=== PATIENT | female | born 1995 | race Caucasian/White ===

== ENCOUNTER 2017-02-19 18:42 | Emergency (ER) | payer MEDICAID, OTHER ==
[~2017-02-19] VITALS: Ht 157.5 cm; Wt 75.0 kg
[~2017-02-19 18:42] MED LIST: LEVO1IUD4; PREN1TAB20 PO
[2017-02-19 18:44] VITALS: BP 135/84; PULSE 90; RESP 20; TEMP 98.4; O2SAT 98
--- NOTE | 2017-02-19 19:28 | PD ---
Physical Exam Time Seen by Provider: 19:27 Narrative 21yo F c/o R ear pain today. HX of ear infection a couple weeks ago and never took the antibiotics. + fever yesterday 101.3. +N w/o vomiting. Patient seen in triage. VS reviewed. Awaiting bed placement. Data Data Last Documented VS Vital Signs Date Time Temp Pulse Resp B/P Pulse Ox O2 Delivery O2 Flow Rate FiO2 02/19/17 18:44 98.4 90 20 135/84 98 Room Air MDM Supervised Visit with ANGELIKA: Noreen Whitney Feb 19, 2017 19:28
[2017-02-19] MEDS ORDERED: AMOX875T PO (21:14)
[2017-02-19] MEDS ORDERED: IBUP800T23 PO (21:14)
[2017-02-19] MEDS ORDERED: AMOXICILLIN 875 MG TAB PO ONE (21:15)
--- NOTE | 2017-02-19 21:15 | PD ---
HPI Chief Complaint: ENT Complaint Time Seen by Provider: 21:08 Travel History International Travel<30 days: No Contact w/Intl Traveler<30days: No Traveled to known affect area: No History of Present Illness HPI Patient's a 21-year-old female presenting to emergency room for evaluation of right and left ear pain. Patient states it has been ongoing for 2-3 weeks, the pain has gotten worse and her hearing is muffled in the right ear. She reports a fever of 101.3 yesterday, she has not taken any Tylenol or ibuprofen today. She also reports an irritated throat and nasal congestion. These symptoms started over the last 2-3 days. She reports her pain is a 5 out of 10, she has not been swimming. She has no primary care provider denies any significant past medical history. [facility] Past Medical History Medical History: Denies Significant Hx Diminished Hearing: No Tetanus Vaccination: < 5 Years Influenza Vaccination: No ?: Not LMP: IRREGULAR Past Surgical History Surgical History: No Previous Surgery Social History Alcohol Use: No Tobacco Use: No Substance Use: No Allergies-Medications (Allergen,Severity, Reaction): Coded Allergies: No Known Allergies (Unverified , 02/19/17) Reported Meds & Prescriptions Reported Meds & Active Scripts Active Reported Kyleena (Levonorgestrel (Iud)) 19.5 Mg Iud Review of Systems Except as stated in HPI: all other systems reviewed are Neg General / Constitutional: Positive: Fever HENT: Positive: Sore Throat, Earache Physical Exam Narrative GENERAL: Well-nourished, well-developed patient. SKIN: Focused skin assessment warm/dry. HEAD: Normocephalic. ENT: Mucosa pink and moist. Mild erythema, no exudates. 1+ tonsillar hypertrophy bilaterally. No uvular edema. No uvular, palatal, or tonsillar deviation. Airway patent. Nasal turbinates appear normal without nasal blood, purulent drainage or septal hematoma. EARS: Bilateral pinnae and external canals appear within normal limits. Bilateral tympanic membranes are erythematous , No perforation noted EYES: No scleral icterus. No injection or drainage. NECK: Supple, trachea midline. No JVD or lymphadenopathy. CARDIOVASCULAR: Regular rate and rhythm without murmurs, gallops, or rubs. RESPIRATORY: Breath sounds equal bilaterally. No accessory muscle use. GASTROINTESTINAL: Abdomen soft, non-tender, nondistended. MUSCULOSKELETAL: No cyanosis, or edema. BACK: Nontender without obvious deformity. No CVA tenderness. Data Data Last Documented VS Vital Signs Date Time Temp Pulse Resp B/P Pulse Ox O2 Delivery O2 Flow Rate FiO2 02/19/17 19:30 16 02/19/17 18:44 98.4 90 135/84 98 Room Air Orders Amoxicillin (Trimox) (02/19/17 21:15) MDM Medical Decision Making Medical Screen Exam Complete: Yes Emergency Medical Condition: Yes Interpretation(s) Vital Signs Date Time Temp Pulse Resp B/P Pulse Ox O2 Delivery O2 Flow Rate FiO2 02/19/17 19:30 16 02/19/17 18:44 98.4 90 20 135/84 98 Room Air Differential Diagnosis Otitis media versus otitis externa versus URI versus pharyngitis versus other Narrative Course Patient is a 21-year-old female presenting to emergency department evaluation of ear pain, nasal congestion, sore throat. Patient's vital signs are stable, she is afebrile and has not taken any antipyretics today. Physical examination revealed bilateral otitis media area patient be treated with amoxicillin, this will also cover pharyngitis. She is encouraged to complete full course of antibiotics as prescribed, take ibuprofen as needed and as directed for fevers or pain. She was encouraged to return to emergency department immediately for any new or worsening symptoms. She is advised to follow-up with her primary doctor or at the [facility]. Patient verbalized understanding of instructions. She will be given first dose of amoxicillin in the emergency department. Patient is stable for discharge. Diagnosis Primary Impression: Otitis media Qualified Code: H66.93 - Bilateral otitis media, unspecified chronicity, unspecified otitis media type Additional Impression: Pharyngitis Qualified Code: J02.9 - Pharyngitis, unspecified etiology Referrals: [facility] Primary Care Physician Patient Instructions: General Instructions, Otitis Media (ED) Additional Instructions: Follow-up with a primary doctor or at the [facility] Complete full course of antibiotics as prescribed even if you begin to feel better Return to the emergency department immediately for any new or worsening symptoms Take ibuprofen as needed and as directed for fever or pain Maintain adequate fluid intake Med/Other Pt SpecificInfo: Prescription(s) given Scripts Ibuprofen 800 Mg [id number] Mg PO Q6HR PRN (PAIN) #40 TAB Ref 0 Prov:Teresa Borges 02/19/17 Amoxicillin 875 Mg [id number] Mg PO BID 10 Days Ref 0 Prov:Teresa Borges 02/19/17 Disposition: 01 DISCHARGE HOME Condition: Stable Teresa Borges Feb 19, 2017 21:15
== END 2017-02-19 22:06 | disposition home or self-care (01) ==
LOC: NEPD 18:42
DX: H66.93 Otitis media, unspecified, bilateral (principal); J02.9 Acute pharyngitis, unspecified; R09.81 Nasal congestion; R50.9 Fever, unspecified
CPT/HCPCS: 99283

== ENCOUNTER 2018-02-17 09:35 | Emergency (ER) | payer BC, MEDICAID, OTHER ==
[~2018-02-17] VITALS: Ht 157.5 cm; Wt 76.0 kg
[~2018-02-17 09:35] MED LIST changes: +AMOX875T PO; +IBUP1TAB7 PO; -PREN1TAB20 PO
[2018-02-17 09:41] VITALS: BP 121/85; PULSE 109; RESP 19; TEMP 98.6; O2SAT 100
[2018-02-17] MEDS ORDERED: KETOROLAC TROMETHAMINE 30 MG/ML (IVP) VIAL IV PUSH ONE (10:00)
[2018-02-17] MEDS ORDERED: ONDANSETRON ODT 4 MG TAB PO ONE (10:00)
[2018-02-17] MEDS ORDERED: SODIUM CHLOR 0.9% 1000 ML INJ 1,000 ML IV ONE (10:00)
[2018-02-17 10:44] LABS: AUTOMATED NEUTROPHIL # 12.3 TH/MM3 (1.8-7.7); BASOPHIL % 0.2 % (0.0-2.0); EOSINOPHIL # 0.1 TH/MM3 (0-0.4); EOSINOPHIL % 0.9 % (0.0-4.0); HEMATOCRIT 42.1 % (35.0-46.0); HEMOGLOBIN 14.3 GM/DL (11.6-15.3); LYMPH % 8.1 % (9.0-44.0); LYMPHOCYTE # 1.2 TH/MM3 (1.0-4.8); MEAN CELL VOLUME 80.9 FL (80.0-100.0); MEAN CORPUSCULAR HEMOGLOBIN 27.6 PG (27.0-34.0); MEAN CORPUSCULAR HGB CONC 34.1 % (32.0-36.0); MEAN PLATELET VOLUME 8.6 FL (7.0-11.0); MONO % 6.4 % (0.0-8.0); MONOCYTE # 0.9 TH/MM3 (0-0.9); NEUT % 84.4 % (16.0-70.0); PLATELET COUNT 225 TH/MM3 (150-450); RED CELL DISTRIBUTION WIDTH 12.8 % (11.6-17.2); WHITE BLOOD COUNT 14.5 TH/MM3 (4.0-11.0)
[2018-02-17 11:00] LABS: ALBUMIN 3.8 GM/DL (3.4-5.0); AST (GOT) 14 U/L (16-38); BICARBONATE 23.7 MEQ/L (21.0-32.0); BLOOD UREA NITROGEN 9 MG/DL (7-18); CALCIUM 9.1 MG/DL (8.5-10.1); CHLORIDE 105 MEQ/L (98-107); CREATININE 0.84 MG/DL (0.50-1.00); GLOMERULAR FILTRATION RATE 86 ML/MIN (>89); GLUCOSE,RANDOM 92 MG/DL (74-106); SODIUM (NA) 138 MEQ/L (136-145)
[2018-02-17 11:02] LABS: ALT (GPT) 29 U/L (9-42)
[2018-02-17 11:03] LABS: ALKALINE PHOSPHATASE 93 U/L (45-117); TOTAL BILIRUBIN ADULT 0.5 MG/DL (0.2-1.0); TOTAL PROTEIN 7.6 GM/DL (6.4-8.2)
[2018-02-17 12:48] LABS: BACTERIA, URINE RARE /hpf; BILIRUBIN, URINE NEG (NEG); BLOOD, URINE SMALL (NEG); GLUCOSE,URINE NEG (NEG); KETONE, URINE TRACE mg/dL (NEG); NITRITE,URINE NEG (NEG); SQUAMOUS EPITHELIAL CELL URINE 6 /hpf (0-5); URINE COLOR YELLOW (YELLW/STRAW); URINE LEUKOCYTE ESTERASE TRACE (NEG)
[2018-02-17] MEDS ORDERED: ZOFR4TAB3 SL (12:52)
--- NOTE | 2018-02-17 12:53 | PD ---
HPI Chief Complaint: GI Complaint Time Seen by Provider: 09:53 Travel History International Travel<30 days: No Contact w/Intl Traveler<30days: No Traveled to known affect area: No History of Present Illness HPI Patient is a 22 year old female who comes in complaining of sore throat, ear pain, nausea, vomiting and diarrhea. She says she started to have the throat pain and ear pain on . She then started vomiting Sunday. She says she felt warm yesterday, but did not take her temperature. She has been taking Tylenol and Ibuprofen with some relief of her symptoms. She denies any abdominal pain. She denies urinary symptoms. Severity is mild to moderate. PFSH Past Medical History Diminished Hearing: No ?: Unknown LMP: end of december?? Social History Alcohol Use: No Tobacco Use: No Substance Use: No Allergies-Medications (Allergen,Severity, Reaction): Coded Allergies: No Known Allergies (Unverified , 02/19/17) Reported Meds & Prescriptions Reported Meds & Active Scripts Active No Active Prescriptions or Reported Medications Review of Systems Except as stated in HPI: all other systems reviewed are Neg General / Constitutional: Positive: Fever HENT: Positive: Headaches Cardiovascular: No: Chest Pain or Discomfort Respiratory: No: Cough, Shortness of Breath Gastrointestinal: Positive: Nausea, Vomiting, Diarrhea, No: Abdominal Pain Genitourinary: No: Dysuria Skin: No Rash, No Change in Pigmentation Neurologic: No: Weakness, Dizziness Physical Exam Narrative GENERAL: Awake and alert, in no acute distress. SKIN: Focused skin assessment warm/dry. No wounds or signs of infection. HEAD: Atraumatic. Normocephalic. EYES: Pupils equal and round. No scleral icterus. ENT: Enlarged tonsils without exudates. Mucous membranes pink and moist. NECK: Trachea midline. No JVD. CARDIOVASCULAR: Regular rate and rhythm. No murmur appreciated. RESPIRATORY: No accessory muscle use. Clear to auscultation. Breath sounds equal bilaterally. GASTROINTESTINAL: Abdomen soft, non-tender, nondistended. No CVA tenderness. MUSCULOSKELETAL: No obvious deformities. No clubbing. No cyanosis. No edema. NEUROLOGICAL: Awake and alert. No obvious cranial nerve deficits. Motor grossly within normal limits. Normal speech. PSYCHIATRIC: Appropriate mood and affect; insight and judgment normal. Data Data Last Documented VS Vital Signs Date Time Temp Pulse Resp B/P (MAP) Pulse Ox O2 Delivery O2 Flow Rate FiO2 02/17/18 09:49 18 02/17/18 09:41 98.6 109 121/85 (97) 100 Orders Orders Iv Access Insert/Monitor (02/17/18 10:00) Complete Blood Count With Diff (02/17/18 10:00) Comprehensive Metabolic Panel (02/17/18 10:00) Urinalysis - C+S If Indicated (02/17/18 10:00) Ed Urine Pregnancytest Poc (02/17/18 10:00) Group A Rapid Strep Screen (02/17/18 10:00) Sodium Chlor 0.9% 1000 Ml Inj (Ns 1000 M (02/17/18 10:00) Ondansetron Odt (Zofran Odt) (02/17/18 10:00) Ketorolac Inj (Toradol Inj) (02/17/18 10:00) Strep Culture (Group A) (02/17/18 10:16) Labs Laboratory Tests Test 02/17/18 10:13 02/17/18 11:21 White Blood Count 14.5 TH/MM3 Red Blood Count 5.20 MIL/MM3 Hemoglobin 14.3 GM/DL Hematocrit 42.1 % Mean Corpuscular Volume 80.9 FL Mean Corpuscular Hemoglobin 27.6 PG Mean Corpuscular Hemoglobin Concent 34.1 % Red Cell Distribution Width 12.8 % Platelet Count 225 TH/MM3 Mean Platelet Volume 8.6 FL Neutrophils (%) (Auto) 84.4 % Lymphocytes (%) (Auto) 8.1 % Monocytes (%) (Auto) 6.4 % Eosinophils (%) (Auto) 0.9 % Basophils (%) (Auto) 0.2 % Neutrophils # (Auto) 12.3 TH/MM3 Lymphocytes # (Auto) 1.2 TH/MM3 Monocytes # (Auto) 0.9 TH/MM3 Eosinophils # (Auto) 0.1 TH/MM3 Basophils # (Auto) 0.0 TH/MM3 CBC Comment DIFF FINAL Differential Comment Blood Urea Nitrogen 9 MG/DL Creatinine 0.84 MG/DL Random Glucose 92 MG/DL Total Protein 7.6 GM/DL Albumin 3.8 GM/DL Calcium Level 9.1 MG/DL Alkaline Phosphatase 93 U/L Aspartate Amino Transf (AST/SGOT) 14 U/L Alanine Aminotransferase (ALT/SGPT) 29 U/L Total Bilirubin 0.5 MG/DL Sodium Level 138 MEQ/L Potassium Level 3.6 MEQ/L Chloride Level 105 MEQ/L Carbon Dioxide Level 23.7 MEQ/L Anion Gap 9 MEQ/L Estimat Glomerular Filtration Rate 86 ML/MIN MDM Medical Decision Making Medical Screen Exam Complete: Yes Emergency Medical Condition: Yes Medical Record Reviewed: Yes Differential Diagnosis gastroenteritis vs viral illness vs pharyngitis vs strep throat vs UTI Narrative Course Patient is a 22-year-old female who comes in complaining of sore throat, ear pain, nausea, vomiting, diarrhea. Exam shows enlarged tonsils without exudates. IV established, labs sent. Labs show an elevated white blood cell count, no other acute abnormalities. Patient given IV fluids, Zofran, Toradol. She does report feeling better. She was able to drink water without vomiting. She will be discharged with a prescription for Zofran. Advised follow-up with her doctor. Advised drink plenty of fluids. Advised to eat a bland diet. Advised to return as needed for any worsening symptoms. Diagnosis Primary Impression: Acute gastroenteritis Patient Instructions: Acute Nausea and Vomiting (ED), General Instructions Additional Instructions: Take Zofran as needed for nausea. Drink plenty of fluids. If you are hungry, eat a bland diet. Follow-up with your doctor. Return to the ED as needed for any worsening symptoms. Scripts Ondansetron Odt (Zofran Odt) 4 Mg Tab 4 MG SL Q6HR Y for Nausea/Vomiting, #12 TAB 0 Refills Prov: Nataliya Downs MD 02/17/18 Disposition: 01 DISCHARGE HOME Condition: Stable Nataliya Downs MD Feb 17, 2018 12:52
== END 2018-02-17 13:00 | disposition home or self-care (01) ==
LOC: NEPD 09:35
DX: K52.9 Noninfective gastroenteritis and colitis, unspecified (principal); R11.2 Nausea with vomiting, unspecified; R51 Headache; H92.09 Otalgia, unspecified ear; R50.9 Fever, unspecified
CPT/HCPCS: 80053; 81001; 84703; 85025; 87081; 87880; 96361; 96374; 99284; J1885; J7030